=== PATIENT | female | born 1975 | race African-American/Black ===

== ENCOUNTER 2021-12-14 10:40 | Observation (INO) ==
[2021-12-14 11:05] VITALS: BMI 32.4
[2021-12-14] MEDS ORDERED: ROCEPHIN VIAL 1 GRAM IM ONE (11:55)
[2021-12-14] MEDS ORDERED: TORADOL 60 MG VIAL IM ONE (11:55)
[2021-12-14] MEDS ORDERED: DECADRON INJ IM ONE (11:55)
--- NOTE | 2021-12-14 12:00 | DR.EXTPAIN ---
HPI Time seen Time Seen by Provider: 12/14/21 11:47 PCP Primary Care Physician: JUVENCIO JUAREZ HPI Comment HPI Comment: PATIENT IS 46YR OLD FEMALE IN ER WITH LEFT FACE PAIN AND SWELLING TIMES 3 DAYS. DENIES FEVER. ON AUDMENTING AND NOT IMPROVING. TEETH AND GUMS HURT ON LEFT SIDE. NO FEVER. Complaint/Symptoms Chief Complaint Doctor Comments: LEFT FACE PAIN AND SWELLING TIMES 3 DAYS. Chief Complaint:: PT STATES HER "WHOLE SIDE" OF HER FACE IS HURTING, INCLUDING TEETH AND GUMS. SHE HAS OBVIOUS EDEMA AROUND LIPS AND LEFT CHEEK. PT STATES THE SWELLING STARTED ON HER LEFT CHEEK AND SPREAD TO LIPS. PT DENIES ANY DYSPNEA, DIFFICULTY SWALLOWING, FEVER Self Treatment fo Chief Complaint: PT WENT TO WALK IN CLINIC ON WEDNESDAY ([facility]) AND WAS PRESCRIBED AUGMENTIN 875/125 PO Q12HR. PT STATES SHE HAS BEEN TAKING MEDS PRESCRIBED WITH NO RELIEF COVID-19 Coronavirus risk:travel/contact w/high risk person: No Has patient experienced Coronavirus symptoms: No Nurses notes reviewed Nurses Notes Review: Yes Source History Provided: Patient Mode of arrival Mode of Arrival: Ambulatory Timing Onset of Chief Complaint: 12/11/21 Context History of: None Associated signs and symptoms Associated Signs and Symptoms: Pain and Swelling PMH PMH Past Medical History: Yes Past Medical History: Anemia, Diabetes and Hypertension Past Surgical History: No Family History History of Family Medical Conditions: Yes Family Medical History: Diabetes Mellitus and Hypertension Social History Does any household member use tobacco: No Alcohol Use: Occasionally Do you use any recreational Drugs:: No Lives With: Family Lives Where: Home Travel Risk Coronavirus risk:travel/contact w/high risk person: No Has patient experienced Coronavirus symptoms: No Infectious screening In the last 2 months have you had wt loss of >10#?: NO Have you had fever, night sweats or hemotysis?: No Have you traveled outside the country in the last 6 months?: No Isolation: Standard ROS Review of Systems Constitutional: See HPI; negative Fever, Weakness and Fatigue Eyes: No Symptoms Reported and See HPI ENTM: No Symptoms Reported and See HPI Respiratoy: No Symptoms Reported and See HPI Cardiovascular: No Symptoms Reported and See HPI Gastrointestinal/Abdominal: No Symptoms Reported and See HPI Genitourinary: No Symptoms Reported and See HPI Neurological: No Symptoms Reported and See HPI Musculoskeletal: No Symptoms Reported and See HPI Integumentary: No Symptoms Reported and See HPI Hematologic/Lymphatic: No Symptoms Reported and See HPI Endocrine: No Symptoms Reported and See HPI Psychiatric: No Symptoms Reported and See HPI All Other Systems: Reviewed and Negative PE Vital Signs Vitals: Temperature 99.0 F Pulse Rate [Left Radial] 93 Pulse Rate 98 Respiratory Rate 18 Blood Pressure [Left Arm] 144/75 Blood Pressure 102/60 O2 Sat by Pulse Oximetry 100 General Limitations: No Limitations General Appearance: Alert and In No Apparent Distress Head Head Exam: Other (LEFT FACIAL SWELLING AND TENDERNESS.) Eyes Eye exam: Normal Appearance; negative Scleral Icterus and Conjunctival Injection ENT ENT Exam: Normal Exam; negative Normal Oropharynx and Normal External Ear Exam Neck Neck Exam: Normal Inspection and Tenderness; negative Trachea Midline Chest Chest Inspection: Normal Inspection and Symmetric Chest Wall Rise; negative Tenderness Respiratory Respiratory Exam: Normal Lung Sounds Bilat; negative Accessory Muscle Use, Chest Wall Tenderness and Respiratory Distress Respiratory Exam: Bilateral: Clear to Auscultation Cardiovascular Cardiovascular Exam: Regular Rate, Normal Rhythm and Normal Heart Sounds; negative Systolic Murmur and Diastolic Murmur Abdominal Exam Abdominal Exam: Normal Inspection, Normal Bowel Sounds and Soft Extremities Extremities Exam: Normal Inspection Back Back Exam: Normal Inspection; negative (R) CVA Tenderness and (L) CVA Tenderness Neurological Neurological Exam: Alert and Oriented X3; negative Motor Sensory Deficit Psychiatric Psychiatric Exam: Normal Affect and Normal Mood Skin Skin Exam: Warm, Dry, Intact and Normal Color MDM Differential Diagnosis Differential Diagnosis: Other COURSE Treatment Treatment: SEE ORDERS DONE WHILE PATIENT WAS IN ER. DISCUSSED LABS AND CT REPORT WITH PATINT. SHE WILL BE ADMITTED TO HOSPITAL FOR FURTHER EVALUATION. Consultation Consultation Comments: DISCUSSED PATIENT WITH GEOFF EDWARDS WHILE IN ER. HE WILL ADMIT PAIENT. Education/Counseling Educated On: Treatment and Other ROR Labs Reviewed Laboratory Results Reviewed?: Yes Result Diagrams: 12/15/21 04:24 12/15/21 04:24 Laboratory: WBC 6.5 X10^3/uL (3.6-10.0) 12/14/21 13:52 RBC 3.35 X10^6/uL (3.5-5.4) L 12/14/21 13:52 Hgb 9.0 g/dL (12.0-16.0) L 12/14/21 13:52 Hct 27.4 % (36.0-47.0) L 12/14/21 13:52 MCV 81.5 fL (80.0-100.0) 12/14/21 13:52 MCH 26.7 pg (27.0-34.0) L 12/14/21 13:52 MCHC 32.8 g/dL (33.0-35.0) L 12/14/21 13:52 RDW 16.5 % (11.6-16.5) 12/14/21 13:52 Plt Count 448 X10^3/uL (150.0-450.0) 12/14/21 13:52 MPV 6.2 fL (7.4-11.0) L 12/14/21 13:52 Neut % (Auto) 79.2 % (42.0-75.0) H 12/14/21 13:52 Lymph % (Auto) 15.2 % (21.0-51.0) L 12/14/21 13:52 [place] % (Auto) 3.9 % (0.0-13.0) 12/14/21 13:52 Eos % (Auto) 1.2 % (0.9-2.9) 12/14/21 13:52 Baso % (Auto) 0.5 % (0.2-1.0) 12/14/21 13:52 Neut # (Auto) 5.2 x10^3/uL (2.2-4.8) H 12/14/21 13:52 Lymph # (Auto) 1.0 X10^3/uL (1.3-2.9) L 12/14/21 13:52 [place] # (Auto) 0.3 x10^3/uL (0.3-0.8) 12/14/21 13:52 Eos # (Auto) 0.1 x10^3/uL (0.0-0.2) 12/14/21 13:52 Baso # (Auto) 0.0 X10^3/uL (0.0-0.1) 12/14/21 13:52 Absolute Nucleated RBC 0.0 /100WBC 12/14/21 13:52 SARS CoV-2 RNA Rapid DIONTE Negative (NEGATIVE) 12/14/21 15:00 XRAY XRAY Interpreted by: Radiologist (REPORT NOTED.) and Self Opioid Opioid Risk Tool Age (Rj box if 16-45): No History of Preadolescent Sexual Abuse: No Total: 0 Total Score Risk Category: Low Risk Copyright: Errol GAGNON predicting aberrant behaviors Diagnosis Discharge Problem: Cellulitis and abscess of face, Swelling of left side of face Allergic reaction Qualifiers: Encounter type: initial encounter Qualified Code(s): T78.40XA - Allergy, unspecified, initial encounter Instructions Instructions: Dental Abscess, Rpnh-[id number] Drug Allergy, Bght-jp-[id number] Type 2 Diabetes Mellitus, Self-Care, Adult, Xxgg-gw-Dcqm Hypertension, Adult, Ywkn-qj-Poyj You've Been Prescribed an Antibiotic in the Hospital for an Infection - CDC Dental Pain, [id number] Forms: Precautions for COVID19 [facility] Patient Portal Social Distancing
[2021-12-14] MEDS ORDERED: TORADOL 60 MG VIAL ONE (12:01)
[2021-12-14] MEDS ORDERED: ROCEPHIN VIAL 1 GRAM ONE (12:01)
--- NOTE | 2021-12-14 13:03 | CT ---
HISTORYFACE PAIN/ SWELLING TO LEFT SIDESTUDYFACIAL W/O CONCOMPARISONCT face dated January 14, 2021.TECHNIQUEMultiple axial images of the facial structures were obtained from the mandible to superior portions of the orbits. Dose reduction techniques including Automated Exposure Control (AEC) and adjustment of mA and kV were utilized.Study severely limited secondary to lack of IV contrast.FINDINGSVisualized intracranial structures and orbits are unremarkable. Marked soft tissue stranding and edema is seen about the left mandible. This area has a single focus of internal air. There is a tooth with a dental missy/fracture at this area. No obvious periosteal reaction seen about the mandible. Lucency is seen about the posterior root of this tooth concerning for periapical abscess with soft tissue swelling and or abscess formation. Remaining soft tissue structures are unremarkable. No acute fracture or dislocation.IMPRESSIONOne. No CT evidence of acute fracture.Two. Constellation of findings likely representing an odontogenic abscess of a posterior left mandibular molar as above. Recommend dental consultation.Electronically signed by: SANTIAGO POLLACK (Dec 14, 2021 13:01:27)
[2021-12-14 13:59] LABS: BASOPHILS % (AUTO) 0.5 % (0.2-1.0); EOSINOPHILS # (AUTO) 0.1 x10^3/uL (0.0-0.2); EOSINOPHILS % (AUTO) 1.2 % (0.9-2.9); HEMATOCRIT 27.4 % (36.0-47.0); LYMPHOCYTES % (AUTO) 15.2 % (21.0-51.0); MEAN CORPUSCULAR HEMOGLOBIN 26.7 pg (27.0-34.0); MEAN CORPUSCULAR HGB CONC 32.8 g/dL (33.0-35.0); MEAN CORPUSCULAR VOLUME 81.5 fL (80.0-100.0); MEAN PLATELET VOLUME 6.2 fL (7.4-11.0); MONOCYTES # (AUTO) 0.3 x10^3/uL (0.3-0.8); MONOCYTES % (AUTO) 3.9 % (0.0-13.0); NEUTROPHILS # (AUTO) 5.2 x10^3/uL (2.2-4.8); NEUTROPHILS % (AUTO) 79.2 % (42.0-75.0); RED BLOOD COUNT 3.35 X10^6/uL (3.5-5.4); RED CELL DISTRIBUTION WIDTH 16.5 % (11.6-16.5); WHITE BLOOD COUNT 6.5 X10^3/uL (3.6-10.0)
[2021-12-14] MEDS ORDERED: CLEOCIN 600 MG IV PREMIX 600 MG/50 ML BAG IV ONE ×2 (15:27→15:33)
[2021-12-14] MEDS ORDERED: NS 1,000 ML IV 1,000 ML ONE (15:36)
[2021-12-14] MEDS: NS 1,000 ML IV 1,000 ML IV SCH (16:02)
[2021-12-14] MEDS ORDERED: BENADRYL INJ 50 MG VIAL IV PRN (16:09)
[2021-12-14] MEDS ORDERED: ZOFRAN TAB 4 MG PO PRN (17:14)
[2021-12-14] MEDS: TORADOL 30 MG VIAL IVP PRN (19:50)
[2021-12-14] MEDS: NovoLIN R (or HumuLIN R) SC PRN (21:48)
[2021-12-14] MEDS: SOLU-Medrol 40 MG VIAL IVP SCH (21:48)
[2021-12-14] MEDS ORDERED: CLEOCIN VIAL 600 MG 300 MG in D5W 50 ML IV 50 ML IV SCH (22:00)
[2021-12-14] MEDS ORDERED: CLEOCIN 300 MG IV PREMIX 300 MG/50 ML BAG IV ONE (22:53)
[2021-12-15] MEDS ORDERED: TYLENOL 325 MG TAB PO PRN (00:15)
[2021-12-15] MEDS ORDERED: TYLENOL 325 MG TAB PO ONE (00:25)
[2021-12-15] MEDS: NS 1,000 ML IV 1,000 ML IV SCH ×2 (01:45→13:37)
[2021-12-15] MEDS: SOLU-Medrol 40 MG VIAL IVP SCH (03:00)
[2021-12-15 04:42] LABS: BASOPHILS % (AUTO) 0.1 % (0.2-1.0); HEMATOCRIT 28.1 % (36.0-47.0); HEMOGLOBIN 9.2 g/dL (12.0-16.0); LYMPHOCYTES # (AUTO) 0.6 X10^3/uL (1.3-2.9); MEAN CORPUSCULAR HEMOGLOBIN 26.8 pg (27.0-34.0); MEAN CORPUSCULAR HGB CONC 32.8 g/dL (33.0-35.0); MEAN CORPUSCULAR VOLUME 81.8 fL (80.0-100.0); MEAN PLATELET VOLUME 6.6 fL (7.4-11.0); MONOCYTES # (AUTO) 0 x10^3/uL (0.3-0.8); MONOCYTES % (AUTO) 0.4 % (0.0-13.0); NEUTROPHILS % (AUTO) 93.5 % (42.0-75.0); RED BLOOD COUNT 3.43 X10^6/uL (3.5-5.4); RED CELL DISTRIBUTION WIDTH 16.7 % (11.6-16.5); WHITE BLOOD COUNT 10.7 X10^3/uL (3.6-10.0)
[2021-12-15 04:45] LABS: ALANINE AMINOTRANSFERASE 14 Units/L (12-78); ALBUMIN 2.9 g/dL (3.4-5.0); ALKALINE PHOSPHATASE 97 Units/L (46-116); ASPARTATE AMINO TRANSFERASE 11 Units/L (15-37); BLOOD UREA NITROGEN 16 mg/dL (7-18); CALCIUM 7.7 mg/dL (8.5-10.1); CARBON DIOXIDE 24.4 mmol/L (21-32); CHLORIDE 102 mmol/L (98-107); COR CA(FOR HYPOALB) 8.6 mg/dL (8.5-10.1); COR NA(FOR HYPERGLY) 140 mmol/L (136-145); CREATININE 0.79 mg/dL (0.55-1.02); SODIUM 135 mmol/L (136-145); TOTAL PROTEIN 7.8 g/dL (6.4-8.2); eGFR NON BLACK RACES > 60 (>60)
[2021-12-15 05:06] LABS: ANISOCYTOSIS SLIGHT; HYPOCHROMASIA SLIGHT; PLATELET MORPHOLOGY COMMENT NORMAL (NORMAL)
[2021-12-15] MEDS: NovoLIN R (or HumuLIN R) SC PRN (06:00)
[2021-12-15] MEDS ORDERED: CLEOCIN 300 MG IV PREMIX 300 MG/50 ML BAG IV SCH (06:00)
--- NOTE | 2021-12-15 08:51 | DR.SSS ---
SHORT STAY SUMMARY Admission Date Date of Admission: 12/14/21 Discharge Date Discharge Date: 12/15/21 Admission Diagnoses Admission Diagnoses: Tooth abscess Allergic reaction Discharge Diagnoses Discharge Diagnoses: Tooth abscess Allergic reaction Chief Complaint Chief Complaint: Left sided face and lips swelling History of Present Illness History of Present Illness: Pt is a 46 year old female past medical history of DMT2, Hypertension, Anemia presenting with left sided facial swelling as well as swelling of lips that she noticed progressively getting worse since yesterday. She did report having some left facial swelling a few days ago and was diagnosed with tooth abscess and given augmentin. She was told by her dentist will need tooth removed but will need infection treated before it can be done. Pt denied difficulty breathing or swallowing. Past Medical History Past Medical History: Anemia, Diabetes and Hypertension Allergies Allergies Allergy/AdvReac Type Severity Reaction Status Date / Time No Known Drug Allergies Allergy Verified 07/03/19 01:17 Medications Home Medications: No Known Drug Allergies Allergy (Verified 07/03/19 01:17) CONTINUE taking the following medications atorvastatin 20 mg PO HS 12/14/21 [History] pantoprazole 40 mg PO DAILY 12/14/21 [History] New Prescriptions clindamycin HCl 300 mg PO Q8H 7 Days #21 cap 12/15/21 [Rx] Family History Family Medical History: Cancer, Heart Failure and Hypertension Social History Does patient currently use any type of tobacco product: No Have you used tobacco products in the last 12 months: No Type of Tobacco Use: None Does any household member use tobacco: No Alcohol Use: None Drug Use: None Review of Systems Constitutional: No Symptoms Reported Eyes: No Symptoms Reported ENT: Mouth Pain and Other (lips swelling) Respiratory: No Symptoms Reported Cardiovascular: No Symptoms Reported Gastrointestinal: No Symptoms Reported Genitourinary: No Symptoms Reported Musculoskeletal: No Symptoms Reported Skin: No Symptoms Reported Neurological: No Symptoms Reported Physical Exam Vital Signs: Last Vital Signs Temp 98.5 F 12/15/21 04:00 Pulse 96 H 12/15/21 04:00 Resp 18 12/15/21 04:00 BP 140/66 12/15/21 04:00 Pulse Ox 99 12/15/21 04:00 Oriented: Normal Eyes: Normal Ear: Normal Nose: Normal Throat: Normal Respiratory: Clear Throughout Cardiovascular: Normal : Normal Auscultation: Bowel Sounds: Normal Palpation: Normal Tenderness: Normal Skin: Normal Musculoskeletal: Normal Psychiatric: Normal Mood Description: Calm Speech Pattern: Clear Labs Labs: Laboratory Last Values WBC 10.7 X10^3/uL (3.6-10.0) H 12/15/21 04:24 RBC 3.43 X10^6/uL (3.5-5.4) L 12/15/21 04:24 Hgb 9.2 g/dL (12.0-16.0) L 12/15/21 04:24 Hct 28.1 % (36.0-47.0) L 12/15/21 04:24 MCV 81.8 fL (80.0-100.0) 12/15/21 04:24 MCH 26.8 pg (27.0-34.0) L 12/15/21 04:24 MCHC 32.8 g/dL (33.0-35.0) L 12/15/21 04:24 RDW 16.7 % (11.6-16.5) H 12/15/21 04:24 Plt Count 526 X10^3/uL (150.0-450.0) H 12/15/21 04:24 Plt Count Comment Increased (ADEQUATE) A 12/15/21 04:24 MPV 6.6 fL (7.4-11.0) L 12/15/21 04:24 Neut % (Auto) 93.5 % (42.0-75.0) H 12/15/21 04:24 Lymph % (Auto) 6.0 % (21.0-51.0) L 12/15/21 04:24 [place] % (Auto) 0.4 % (0.0-13.0) 12/15/21 04:24 Eos % (Auto) 0.0 % (0.9-2.9) L 12/15/21 04:24 Baso % (Auto) 0.1 % (0.2-1.0) L 12/15/21 04:24 Neut # (Auto) 10.0 x10^3/uL (2.2-4.8) H 12/15/21 04:24 Lymph # (Auto) 0.6 X10^3/uL (1.3-2.9) L 12/15/21 04:24 [place] # (Auto) 0 x10^3/uL (0.3-0.8) L 12/15/21 04:24 Eos # (Auto) 0.0 x10^3/uL (0.0-0.2) 12/15/21 04:24 Baso # (Auto) 0.0 X10^3/uL (0.0-0.1) 12/15/21 04:24 Absolute Nucleated RBC 0.0 /100WBC 12/15/21 04:24 Total Counted 100 12/15/21 04:24 Neutrophils % (Manual) 91 % (39-76) H 12/15/21 04:24 Lymphocytes % (Manual) 8 % (13-43) L 12/15/21 04:24 Monocytes % (Manual) 1 % (4-9) L 12/15/21 04:24 Plt Morphology Comment Normal (NORMAL) 12/15/21 04:24 RBC Morphology Abnormal (NORMAL) A 12/15/21 04:24 Hypochromasia Slight A 12/15/21 04:24 Anisocytosis Slight A 12/15/21 04:24 Sodium 135 mmol/L (136-145) L 12/15/21 04:24 Corrected Sodium 140 mmol/L (136-145) 12/15/21 04:24 Potassium 4.1 mmol/L (3.5-5.1) 12/15/21 04:24 Chloride 102 mmol/L (98-107) 12/15/21 04:24 Carbon Dioxide 24.4 mmol/L (21-32) 12/15/21 04:24 BUN 16 mg/dL (7-18) 12/15/21 04:24 Creatinine 0.79 mg/dL (0.55-1.02) 12/15/21 04:24 Est GFR (MDRD) Af Amer > 60 (>60) 12/15/21 04:24 Est GFR (MDRD) Non-Af > 60 (>60) 12/15/21 04:24 Glucose 305 mg/dL (65-99) H 12/15/21 04:24 POC Glucose (mg/dL) 259 mg/dL (65-99) H 12/15/21 05:57 Calcium 7.7 mg/dL (8.5-10.1) L 12/15/21 04:24 Corrected Calcium 8.6 mg/dL (8.5-10.1) 12/15/21 04:24 Total Bilirubin 0.20 mg/dL (0.2-1.0) 12/15/21 04:24 AST 11 Units/L (15-37) L 12/15/21 04:24 ALT 14 Units/L (12-78) 12/15/21 04:24 Alkaline Phosphatase 97 Units/L (46-116) 12/15/21 04:24 Total Protein 7.8 g/dL (6.4-8.2) 12/15/21 04:24 Albumin 2.9 g/dL (3.4-5.0) L 12/15/21 04:24 Globulin 4.9 g/dL (2.5-4.5) H 12/15/21 04:24 Albumin/Globulin Ratio 0.6 Ratio (1.1-2.1) L 12/15/21 04:24 SARS CoV-2 RNA Rapid DIONTE Negative (NEGATIVE) 12/14/21 15:00 Assessment/Plan (1) Allergic reaction: (2) Tooth abscess: Hospital Course Hospital Course: Pt was started on IV antibiotics: Clindamycin 300mg TID and IV Solumedrol. Labs/imaging: Wbc 10.7, Hgb 9.2, Plt 526, Na 135, K 4.1, Creatinine 0.79, Glucose 305, CT face was obtained that revealed: Constellation of findings likely representing an odontogenic abscess of a posterior left mandibular molar as above. Pt responded well to treatments, and on exam no lip edema was identified. Pt did have mild edema of left lower mouth and tenderness where abscess located. Discussed with patient importance of dental/oral surgeon follow up. Pt verbalized understanding. Rx clindamycin. Pt discharged in stable condition. Instructed to follow up with dentist and pcp in 3-5 days. Discharge Medications Discharge Medications: Home Medication List atorvastatin 20 mg PO HS 12/14/21 [History] pantoprazole 40 mg PO DAILY 12/14/21 [History] clindamycin HCl 300 mg PO Q8H 7 Days #21 cap 12/15/21 [Rx] Prescriptions: clindamycin HCl Pedro Luis Arias Discharge Disposition Discharge Disposition: Home
[2021-12-15] MEDS ORDERED: VSL#3 PO SCH (09:00)
[2021-12-15 09:10] VITALS: BP 140/63
[2021-12-15] MEDS: TORADOL 30 MG VIAL IVP PRN (10:04)
== END 2021-12-15 11:50 | disposition home or self-care (01) ==
LOC: ER 10:53 → MED/SURG 10:53
PROVIDERS: ADMIT Internal Medicine; ATTEND Family Medicine
DX: K04.7 Periapical abscess without sinus; E11.65 Type 2 diabetes mellitus with hyperglycemia; Z20.822 Contact with and (suspected) exposure to COVID-19; I10 Essential (primary) hypertension; T78.40XA Allergy, unspecified, initial encounter

== ENCOUNTER 2025-07-13 09:45 | Observation (INO) ==
[2025-07-13] MEDS: VERSED ONE (07:06)
[2025-07-13] MEDS: FENTANYL VIAL INJ 100 mcg ONE (07:06)
[2025-07-13 07:08] VITALS: BMI 37.8
[2025-07-13] MEDS: CLEOCIN 600 MG IV PREMIX 600 MG/50 ML BAG IV ONE (07:09)
[2025-07-13] MEDS: PEPCID 20 MG VIAL ONE (07:10)
[2025-07-13] MEDS: NS 1,000 ML IV 1,000 ML ONE ×2 (07:10→10:51)
[2025-07-13] MEDS: REGLAN INJ 10 MG VIAL IVP PRN (07:37)
[2025-07-13] MEDS: NS 1,000 ML IV 900 ML IV PRN (07:37)
[2025-07-13] MEDS: ZOFRAN INJ 4 MG VIAL IVP PRN ×3 (07:37→17:59)
[2025-07-13] MEDS: VERSED IVP PRN (07:37)
[2025-07-13] MEDS: PEPCID 20 MG VIAL IVP PRN (07:37)
[2025-07-13] MEDS: FENTANYL VIAL INJ 100 mcg IVP PRN (07:45)
[2025-07-13] MEDS: DIPRIVAN VIAL 150 ML IVP PRN (07:45)
[2025-07-13] MEDS: ZEMURON 100 MG VIAL IVP PRN (07:45)
[2025-07-13] MEDS: CLEOCIN 600 MG IV PREMIX 600 MG/50 ML BAG IV PRN (07:50)
[2025-07-13] MEDS: EPHEDRINE SULFATE INJ ONE (07:53)
[2025-07-13] MEDS: BRIDION ONE ×2 (07:53→07:56)
[2025-07-13] MEDS: DIPRIVAN VIAL 20 ML ONE (07:53)
[2025-07-13] MEDS: OFIRMEV IV 1000 MG VIAL 1,000 MG/100 ML VIAL IV ONE (07:53)
[2025-07-13] MEDS: ZOFRAN INJ 4 MG VIAL ONE (07:54)
[2025-07-13] MEDS: REGLAN INJ 10 MG VIAL ONE (07:54)
[2025-07-13] MEDS: ZEMURON 100 MG VIAL ONE (07:54)
[2025-07-13] MEDS: MARCAINE 0.25% INJ ONE (07:58)
[2025-07-13] MEDS: EPHEDRINE SULFATE INJ IVP PRN (08:20)
[2025-07-13] MEDS: DILAUDID INJ ONE (08:36)
[2025-07-13] MEDS: OFIRMEV IV 1000 MG VIAL 1,000 MG/100 ML VIAL IV PRN (08:51)
[2025-07-13] MEDS: ROBINUL ONE (08:53)
[2025-07-13] MEDS: KETAMINE HCL IV PRN (08:56)
[2025-07-13] MEDS: ROBINUL IVP PRN (08:57)
[~2025-07-13 09:45] MED LIST: BARHEMSYS INJ IVP PRN; BENADRYL INJ 50 MG VIAL IVP PRN; DILAUDID INJ IVP PRN; KETAMINE HCL ONE; PHARMACY CONSULT XX SCH; PRECEDEX INJ VIAL ONE; REGLAN INJ 10 MG VIAL IVP PRN; ULTANE GAS IN ONE; XYLOCAINE 2 % (PLAIN) ONE; XYLOCAINE 2 % (PLAIN) PRN; ZOFRAN INJ 4 MG VIAL IVP PRN
[2025-07-13] MEDS: HYDROGEN PEROXIDE 3% ONE (09:53)
[2025-07-13] MEDS: BRIDION IVP PRN (09:59)
[2025-07-13] MEDS: DILAUDID INJ IVP PRN ×2 (10:07→16:49)
[2025-07-13] MEDS: PRECEDEX INJ VIAL IVP PRN (10:08)
[2025-07-13] MEDS ORDERED: PERCOCET TAB 5/325 MG PO PRN (10:13)
[2025-07-13] MEDS ORDERED: TYLENOL 325 MG TAB PO PRN (10:13)
[2025-07-13] MEDS: ANCEF VIAL 1 GRAM ONE (10:50)
[2025-07-13] MEDS: NS 100 ML IV 100 ML ONE (10:50)
[2025-07-13] MEDS ORDERED: NovoLIN R (or HumuLIN R) SUBCUT PRN (11:11)
[2025-07-13] MEDS ORDERED: NS IRRIGATION* 500 ML IR ONE (11:41)
[2025-07-13] MEDS: NS 1,000 ML IV 1,000 ML IV SCH (12:44)
[2025-07-13] MEDS ORDERED: NORCO 10/325 TAB PO PRN (14:28)
[2025-07-13] MEDS: NEURONTIN CAP 300 MG PO SCH (15:17)
[2025-07-13] MEDS: ACTOS PO SCH (15:17)
[2025-07-13] MEDS: PROTONIX TAB 40 MG PO SCH (15:18)
[2025-07-13] MEDS: REGLAN TAB 5 MG PO SCH (16:36)
[2025-07-13] MEDS: LANTUS SC SCH (21:12)
[2025-07-13] MEDS: COLACE CAP 100 MG PO SCH (21:16)
[2025-07-13] MEDS: SNACK - Diabetic Appropriate PO SCH (21:19)
[2025-07-14 05:50] VITALS: RESP 18
[2025-07-14 06:09] LABS: CREATININE 1.15 mg/dL (0.55-1.02); eGFR NON BLACK RACES 53 (>60)
[2025-07-14 07:59] VITALS: PULSE 88
[2025-07-14] MEDS: CRESTOR TAB 10 MG PO SCH (08:38)
[2025-07-14] MEDS: HEMOCYTE PLUS PO SCH (08:39)
[2025-07-14] MEDS: LOVENOX INJ 40 MG SYR SC SCH (08:39)
--- NOTE | 2025-07-14 10:05 | NOTE.SOAP ---
Soap Note Note for Day of Date of Exam: 07/14/25 Subjective Data Subjective Data: Patient was seen and examined at bedside. patient states she is experiencing some pain to her left foot but denies any fevers, shortness of breath and no acute events overnight. Objective Data Objective Data: Dressing was removed due to saturation. Surgical incision sites are still intact with no gapping. No signs of hematoma at any of the sites. The external fixator is in rectus position. Patient is able to wiggle her 3 toes, as her fourth and fifth digits are amputated. Patient denies any calf pain. No signs of infection to the pin sites. Assessment Assessment: Patient is POD # 1 midfoot osteotomy, achilles tenotomy, TA lengthening and external fixator application secondary to a charcot foot of the left foot Plan Plan: - Patient pain is well controlled with current medication regimen. Patient can be discharged home from our standpoint - Patient to begin Lovenox, script is in her chart - Pain medication also in patients chart - Patient to leave dressing intact, will follow up in our office - Patient to remain NWNB to the left foot, we did discuss a facility with the patient but she states she wants to go home and has a good support system
[2025-07-14 11:53] VITALS: BP 103/60; TEMP 98.3; O2SAT 93
== END 2025-07-14 12:35 | disposition home or self-care (01) ==
LOC: MED/SURG
PROVIDERS: ADMIT Obstetrics & Gynecology Obstetrics; ATTEND Obstetrics & Gynecology Obstetrics
PROC: APEXFIX (2025-07-13 13:15)
DX: S93.314A Dislocation of tarsal joint of right foot, initial encounter; E11.65 Type 2 diabetes mellitus with hyperglycemia; M14.671 Charcot's joint, right ankle and foot; E11.42 Type 2 diabetes mellitus with diabetic polyneuropathy; Z79.4 Long term (current) use of insulin; Z79.899 Other long term (current) drug therapy; M76.811 Anterior tibial syndrome, right leg; M62.838 Other muscle spasm; R94.4 Abnormal results of kidney function studies; G89.18 Other acute postprocedural pain; M24.571 Contracture, right ankle; I10 Essential (primary) hypertension